=== PATIENT | female | born 1955 | race Caucasian/White ===

== ENCOUNTER → 2017-04-24 | Outpatient (CLI) | payer OTHER ==
[~2017-04-24] MED LIST: DOXYCYCLINE HY100 MG PO; HYDROCODONE PO; LISINOPRIL-HCT1 EAC1 PO; LISINOPRIL10 MG PO; MULTIVITAMINS1 EAC7 PO; NORCO 5-325 TA1 EACH PO; NORCO 7.5-3251 EACH PO; PREDNISONE20 MG PO; VITAMIN D2000 UNI1 PO
--- NOTE | 2017-04-24 09:59 | Diagnostic Imaging Report ---
PROCEDURE: C-SPINE AP AND LAT WITH FLEX AND EXT COMPARISON: Cervical spine series 10/27/2016. INDICATIONS: STATUS POST CERVICAL SPINE SURGERY FINDINGS: C1 through C7 are visualized on the lateral view. Re-demonstration of status post anterior fusion of C3/C4 with disc spacer and transfixing screws which are intact and in adequate alignment. Flexion and extension views demonstrate no change in alignment. The prevertebral soft tissues are not swollen. CONCLUSION: Status post anterior fusion of C3/C4 with some interval bony fusion. Intact hardware with adequate alignment. Dictated by: Sebastian Iqbal M.D. on 04/24/2017 at 10:00 Electronically approved by: Sebastian Iqbal M.D. on 04/24/2017 at 10:00
== END ==
LOC: RAD 09:12
PROVIDERS: ATTEND Neurological Surgery
DX: M50.20 Other cervical disc displacement, unspecified cervical region (principal); Z98.1 Arthrodesis status
CPT/HCPCS: 72050

== ENCOUNTER 2022-04-04 21:04 | Inpatient (IN) | payer MEDICARE, OTHER ==
[~2022-04-04] VITALS: Ht 172.7 cm; Wt 84.2 kg
[2022-04-04] MEDS ORDERED: FAMOTIDINE 20 MG/2 ML VIAL IV STA (21:09)
[2022-04-04] MEDS ORDERED: METHYLPREDNISOLONE SOD SUCC 125 MG/2ML VIAL IV ONE (21:15)
[2022-04-04] MEDS ORDERED: DIPHENHYDRAMINE HCL INJ 50 MG/ML VIAL IV ONE (21:15)
[2022-04-04 21:23] LABS: BASOPHILS # (AUTO) 0.1 (0.0-0.1); BASOPHILS % 0.4 % (0.0-1.0); EOSINOPHILS # (AUTO) 0.1 (0.0-0.4); EOSINOPHILS % 0.7 % (0.0-6.0); HEMATOCRIT 43.7 % (34.2-44.1); HEMOGLOBIN 14.2 g/dL (12.0-16.0); LYMPHOCYTES # (AUTO) 3.3 (1.0-3.2); LYMPHOCYTES % 24.1 % (18.0-39.1); MEAN CORPUSCULAR HEMOGLOBIN 30.5 pg (28-32); MEAN CORPUSCULAR HGB CONC 32.5 g/dL (31-35); MEAN CORPUSCULAR VOLUME 93.8 fL (81-99); MONOCYTES # (AUTO) 0.8 (0.2-0.8); MONOCYTES % 6.1 % (4.4-11.3); NEUTROPHILS # (AUTO) 9.4 (2.1-6.9); NEUTROPHILS % 68.1 % (38.7-80.0); PLATELET COUNT 315 x10e3/uL (140-360); RED BLOOD COUNT 4.66 x10e6/uL (3.6-5.1); RED CELL DISTRIBUTION WIDTH 14.5 % (11.7-14.4)
[2022-04-04] MEDS ORDERED: FAMOTIDINE 20 MG/2 ML VIAL IV ONE (21:29)
[2022-04-04 21:35] LABS: ALBUMIN 3.4 g/dL (3.5-5.0); ALBUMIN/GLOBULIN RATIO 0.7 (0.8-2.0); ANION GAP 16.4 mmol/L (8-16); CALCIUM 10.8 mg/dL (8.4-10.2); CREATININE, SERUM 1.01 mg/dL (0.57-1.11); POTASSIUM 4.4 mmol/L (3.5-5.1)
[2022-04-04 22:15] LABS: CREATINE KINASE MB 3.5 ng/mL (0-5.0)
[2022-04-04] MEDS ORDERED: SODIUM CHLORIDE 0.9% 1000ML 1,000 ML IV ONE (22:45)
[2022-04-04 23:45] VITALS: BP 153/62
[2022-04-04 23:46] VITALS: BP 138/63
[2022-04-05] VITALS (60 sets, daily range): BP systolic 101–162; BP diastolic 49–101
[2022-04-05] MEDS: METHYLPREDNISOLONE SOD SUCC 40 MG/ML VIAL 1ML IV SCH ×2 (00:06→05:33)
[2022-04-05] MEDS: DIPHENHYDRAMINE HCL INJ 50 MG/ML VIAL IV SCH ×2 (00:06→05:33)
[2022-04-05 07:53] LABS: CREATINE KINASE MB 2.9 ng/mL (0-5.0)
[2022-04-05 08:19] LABS: CHOL/HDL RATIO 4.9 (3.0-3.6)
[2022-04-05 08:30] LABS: BASOPHILS % 0.1 % (0.0-1.0); HEMATOCRIT 41.4 % (34.2-44.1); HEMOGLOBIN 13.9 g/dL (12.0-16.0); LYMPHOCYTES # (AUTO) 0.7 (1.0-3.2); LYMPHOCYTES % 6.1 % (18.0-39.1); MEAN CORPUSCULAR HEMOGLOBIN 30.6 pg (28-32); MEAN CORPUSCULAR HGB CONC 33.6 g/dL (31-35); MEAN CORPUSCULAR VOLUME 91.2 fL (81-99); MONOCYTES # (AUTO) 0.2 (0.2-0.8); MONOCYTES % 1.3 % (4.4-11.3); NEUTROPHILS # (AUTO) 10.4 (2.1-6.9); NEUTROPHILS % 91.5 % (38.7-80.0); PLATELET COUNT 302 x10e3/uL (140-360); RED BLOOD COUNT 4.54 x10e6/uL (3.6-5.1); RED CELL DISTRIBUTION WIDTH 14.2 % (11.7-14.4)
[2022-04-05] MEDS ORDERED: DIPHENHYDRAMINE HCL INJ 50 MG/ML VIAL IV PRN (08:30)
[2022-04-05 08:38] LABS: ALBUMIN 3.3 g/dL (3.5-5.0); ALBUMIN/GLOBULIN RATIO 0.8 (0.8-2.0); ANION GAP 19.8 mmol/L (8-16); CREATININE, SERUM 1.37 mg/dL (0.57-1.11); POTASSIUM 4.8 mmol/L (3.5-5.1)
[2022-04-05] MEDS: MULTIVITAMINS/MINERALS TAB PO SCH ×2 (09:00→10:07)
[2022-04-05] MEDS: FAMOTIDINE 20 MG/2 ML VIAL IV SCH ×2 (10:07→17:07)
[2022-04-05] MEDS: NICOTINE 21 MG/EA PATCH TOP SCH (12:09)
[2022-04-05] MEDS: MUPIROCIN 2% OINT 22 GM TUBE TOP SCH (21:00)
[2022-04-06] VITALS (37 sets, daily range): BP systolic 115–178; BP diastolic 55–147
[2022-04-06 05:56] LABS: BASOPHILS % 0.2 % (0.0-1.0); EOSINOPHILS % 0.1 % (0.0-6.0); HEMATOCRIT 38.2 % (34.2-44.1); HEMOGLOBIN 13.2 g/dL (12.0-16.0); LYMPHOCYTES # (AUTO) 1.8 (1.0-3.2); LYMPHOCYTES % 9.7 % (18.0-39.1); MEAN CORPUSCULAR HEMOGLOBIN 31.6 pg (28-32); MEAN CORPUSCULAR HGB CONC 34.6 g/dL (31-35); MEAN CORPUSCULAR VOLUME 91.4 fL (81-99); MONOCYTES # (AUTO) 1.2 (0.2-0.8); MONOCYTES % 6.5 % (4.4-11.3); NEUTROPHILS % 80.1 % (38.7-80.0); PLATELET COUNT 260 x10e3/uL (140-360); RED BLOOD COUNT 4.18 x10e6/uL (3.6-5.1); RED CELL DISTRIBUTION WIDTH 14.3 % (11.7-14.4)
[2022-04-06 06:27] LABS: ALBUMIN 3.1 g/dL (3.5-5.0); ALBUMIN/GLOBULIN RATIO 0.8 (0.8-2.0); ANION GAP 14.3 mmol/L (8-16); CALCIUM 9.1 mg/dL (8.4-10.2); CHOL/HDL RATIO 5.2 (3.0-3.6); CREATININE, SERUM 1.06 mg/dL (0.57-1.11); POTASSIUM 4.3 mmol/L (3.5-5.1)
[2022-04-06 06:55] LABS: CREATINE KINASE MB 3.3 ng/mL (0-5.0)
[2022-04-06] MEDS: HYDROCODONE/APAP 7.5MG-325MG 1 EA TAB PO PRN ×4 (07:43→22:27)
[2022-04-06] MEDS: MUPIROCIN 2% OINT 22 GM TUBE TOP SCH ×2 (09:00→21:00)
[2022-04-06] MEDS: HYDRALAZINE HCL 20 MG/ML VIAL IV PRN (09:32)
[2022-04-06] MEDS: FAMOTIDINE 20 MG/2 ML VIAL IV SCH ×2 (09:41→18:17)
[2022-04-06] MEDS: SODIUM CHLORIDE FLUSH 10 ML SYR INJ PRN ×2 (09:41→18:18)
[2022-04-06] MEDS: MULTIVITAMINS/MINERALS TAB PO SCH (09:41)
[2022-04-06] MEDS: NICOTINE 21 MG/EA PATCH TOP SCH (09:41)
[2022-04-07] VITALS (20 sets, daily range): BP systolic 101–168; BP diastolic 67–109
[2022-04-07] MEDS: HYDROCODONE/APAP 7.5MG-325MG 1 EA TAB PO PRN ×2 (06:04→21:19)
[2022-04-07 06:35] LABS: BASOPHILS % 0.3 % (0.0-1.0); EOSINOPHILS # (AUTO) 0.1 (0.0-0.4); EOSINOPHILS % 0.6 % (0.0-6.0); HEMATOCRIT 42.4 % (34.2-44.1); HEMOGLOBIN 13.9 g/dL (12.0-16.0); LYMPHOCYTES % 27.1 % (18.0-39.1); MEAN CORPUSCULAR HEMOGLOBIN 30.6 pg (28-32); MEAN CORPUSCULAR HGB CONC 32.8 g/dL (31-35); MEAN CORPUSCULAR VOLUME 93.4 fL (81-99); MONOCYTES # (AUTO) 0.8 (0.2-0.8); MONOCYTES % 7.4 % (4.4-11.3); NEUTROPHILS # (AUTO) 7.1 (2.1-6.9); NEUTROPHILS % 64.2 % (38.7-80.0); PLATELET COUNT 279 x10e3/uL (140-360); RED BLOOD COUNT 4.54 x10e6/uL (3.6-5.1); RED CELL DISTRIBUTION WIDTH 14.5 % (11.7-14.4)
[2022-04-07 07:02] LABS: ALBUMIN 3.4 g/dL (3.5-5.0); ALBUMIN/GLOBULIN RATIO 0.8 (0.8-2.0); ANION GAP 15.7 mmol/L (8-16); CALCIUM 9.7 mg/dL (8.4-10.2); CREATININE, SERUM 0.89 mg/dL (0.57-1.11); POTASSIUM 4.7 mmol/L (3.5-5.1)
[2022-04-07] MEDS: MULTIVITAMINS/MINERALS TAB PO SCH (09:00)
[2022-04-07] MEDS: MUPIROCIN 2% OINT 22 GM TUBE TOP SCH ×3 (09:00→20:39)
[2022-04-07] MEDS ORDERED: ONDANSETRON HCL INJ 2MG/ML 2ML 2 MG/ML VIAL IV PRN (09:30)
[2022-04-07] MEDS: NICOTINE 21 MG/EA PATCH TOP SCH (09:40)
[2022-04-07] MEDS: FAMOTIDINE 20 MG/2 ML VIAL IV SCH ×2 (09:42→17:00)
[2022-04-07] MEDS ORDERED: MIDAZOLAM HCL 2 MG/2 ML VIAL ONE (17:11)
[2022-04-07] MEDS ORDERED: GENTAMICIN SULFATE 40 MG/ML 2 ML VIAL ONE (17:12)
[2022-04-07] MEDS ORDERED: Vancomycin IV 1 GM VIAL ONE ×2 (17:12→17:13)
[2022-04-07] MEDS ORDERED: FENTANYL CITRATE/PF 100MCG/2 ML INJ ONE (17:12)
[2022-04-07] MEDS ORDERED: LIDOCAINE HCL 2% LOCAL 20 ML VIAL ONE ×2 (17:13→18:00)
[2022-04-07] MEDS ORDERED: SODIUM CHLORIDE 0.9% 1000ML 3,000 ML ONE (17:13)
[2022-04-07] MEDS ORDERED: SODIUM CHLORIDE 0.9% 250ML 250 ML ONE (17:13)
[2022-04-07] MEDS: DOXYCYCLINE HYCLATE TABLET 100 MG TAB PO SCH (20:42)
[2022-04-08] VITALS (15 sets, daily range): BP systolic 123–169; BP diastolic 68–100
[2022-04-08] MEDS: HYDROCODONE/APAP 7.5MG-325MG 1 EA TAB PO PRN ×2 (05:15→13:15)
[2022-04-08] MEDS: DOXYCYCLINE HYCLATE TABLET 100 MG TAB PO SCH ×2 (08:58→16:08)
[2022-04-08] MEDS: MULTIVITAMINS/MINERALS TAB PO SCH (08:58)
[2022-04-08] MEDS: MUPIROCIN 2% OINT 22 GM TUBE TOP SCH ×2 (08:58→21:00)
[2022-04-08] MEDS: FAMOTIDINE 20 MG/2 ML VIAL IV SCH ×2 (08:58→16:09)
[2022-04-08] MEDS: NICOTINE 21 MG/EA PATCH TOP SCH (08:58)
[2022-04-08] MEDS: HYDRALAZINE HCL 20 MG/ML VIAL IV PRN (14:15)
[2022-04-09 05:48] VITALS: BP 176/86
[2022-04-09 08:00] VITALS: BP 190/98
[2022-04-09 09:09] VITALS: BP 193/93
[2022-04-09] MEDS: DOXYCYCLINE HYCLATE TABLET 100 MG TAB PO SCH (09:36)
[2022-04-09] MEDS: HYDROCODONE/APAP 7.5MG-325MG 1 EA TAB PO PRN (09:36)
[2022-04-09] MEDS: FAMOTIDINE 20 MG/2 ML VIAL IV SCH (09:36)
[2022-04-09] MEDS: NICOTINE 21 MG/EA PATCH TOP SCH (09:36)
[2022-04-09] MEDS: MULTIVITAMINS/MINERALS TAB PO SCH (09:36)
[2022-04-09 12:35] VITALS: BP 173/85
[2022-04-09] MEDS: HYDRALAZINE HCL 20 MG/ML VIAL IV PRN (12:51)
== END 2022-04-09 14:40 | disposition home or self-care (01) | DRG 244 ==
LOC: ER 21:16 → ERHOLD 22:38 → ICU 23:15 → MED/SURG2 04-08 12:41
PROVIDERS: ADMIT Internal Medicine; ATTEND Internal Medicine
PROC: 0JH606Z Insertion of Pacemaker, Dual Chamber into Chest Subcutaneous Tissue and Fascia, Open Approach (ICD-10-PCS; principal; 2022-04-07)
PROC: 02H63JZ Insertion of Pacemaker Lead into Right Atrium, Percutaneous Approach (ICD-10-PCS; 2022-04-07)
PROC: 02HK3JZ Insertion of Pacemaker Lead into Right Ventricle, Percutaneous Approach (ICD-10-PCS; 2022-04-07)
DX: I49.5 Sick sinus syndrome (principal); I35.0 Nonrheumatic aortic (valve) stenosis; I10 Essential (primary) hypertension; E11.9 Type 2 diabetes mellitus without complications; F17.200 Nicotine dependence, unspecified, uncomplicated; T78.3XXA Angioneurotic edema, initial encounter; T46.4X5A Adverse effect of angiotensin-converting-enzyme inhibitors, initial encounter; E83.52 Hypercalcemia; I25.10 Atherosclerotic heart disease of native coronary artery without angina pectoris; I48.0 Paroxysmal atrial fibrillation; Z20.822 Contact with and (suspected) exposure to COVID-19; Z90.49 Acquired absence of other specified parts of digestive tract; Z85.3 Personal history of malignant neoplasm of breast; Z92.3 Personal history of irradiation
CPT/HCPCS: 33208; 36415; 36569; 71045; 80053; 80061; 82550; 82553; 83735; 83970; 84443; 84484; 85025; 86850; 86900; 87040; 93005; 93306; 94799; 96360; 99152; 99153; 99252; 99284; C1769; C1785; C1898; J0360; J1200; J1580; J2001; J2250; J2405; J2920; J2930; J3010; J3370; J7030; J7050

== ENCOUNTER 2024-05-02 23:29 | Inpatient (IN) | payer MEDICARE, OTHER ==
[~2024-05-02] VITALS: Ht 168.9 cm; Wt 95.3 kg
[2024-05-02 23:45] VITALS: RESP 18; TEMP 97.9
[2024-05-03] VITALS (13 sets, daily range): BP systolic 91–124; BP diastolic 64–81; PULSE 70–86; RESP 16–20; TEMP 97.5–98.3; O2SAT 91–100
[2024-05-03 00:11] LABS: BASOPHILS % 0.2 % (0.0-1.0); EOSINOPHILS # (AUTO) 0.1 (0.0-0.4); EOSINOPHILS % 0.7 % (0.0-6.0); HEMATOCRIT 38.5 % (34.2-44.1); HEMOGLOBIN 12.8 g/dL (12.0-16.0); LYMPHOCYTES # (AUTO) 1.6 (1.0-3.2); LYMPHOCYTES % 14.8 % (18.0-39.1); MEAN CORPUSCULAR HEMOGLOBIN 31.6 pg (28-32); MEAN CORPUSCULAR HGB CONC 33.2 g/dL (31-35); MEAN CORPUSCULAR VOLUME 95.1 fL (81-99); MONOCYTES # (AUTO) 0.8 (0.2-0.8); MONOCYTES % 7.5 % (4.4-11.3); NEUTROPHILS # (AUTO) 8.4 (2.1-6.9); NEUTROPHILS % 76.3 % (38.7-80.0); PLATELET COUNT 201 x10e3/uL (140-360); RED BLOOD COUNT 4.05 x10e6/uL (3.6-5.1); RED CELL DISTRIBUTION WIDTH 15.8 % (11.7-14.4); WHITE BLOOD COUNT 10.94 x10e3/uL (4.8-10.8)
[2024-05-03 00:36] LABS: BILIRUBIN,URINE SMALL (NEGATIVE); CLARITY,URINE CLEAR (CLEAR); COLOR,URINE AMBER (YELLOW); GLUCOSE, URINE NEGATIVE (NEGATIVE); KETONES,URINE NEGATIVE (NEGATIVE); LEUKOCYTE ESTERASE ,URINE NEGATIVE (NEGATIVE); NITRITE,URINE NEGATIVE (NEGATIVE); PH,URINE 5.5 (5 - 7); PROTEIN,URINE DIPSTICK 2+ (NEGATIVE); URINE UROBILINOGEN 0.2 mg/dL (0.2 - 1)
[2024-05-03 00:50] LABS: BACTERIA,URINE MANY /HPF; EPITHELIAL CELLS,URINE MODERATE /LPF; RBC,URINE 0-5 /HPF (0-5)
[2024-05-03 00:54] LABS: CORONAVIRUS COVID-19 AG NEGATIVE (NEGATIVE); INFLUENZA A AG NEGATIVE (NEGATIVE); INFLUENZA B AG NEGATIVE (NEGATIVE)
[2024-05-03 00:55] LABS: ALANINE AMINOTRANSFERASE 18 IU/L (0-55); ALBUMIN 3.2 g/dL (3.5-5.0); ALBUMIN/GLOBULIN RATIO 0.9 (0.8-2.0); ALKALINE PHOSPHATASE 89 IU/L (40-150); ANION GAP 18.3 mmol/L (8-16); BILIRUBIN,TOTAL 1.4 mg/dL (0.2-1.2); BLOOD UREA NITROGEN 32 mg/dL (7-26); BUN/CREATININE RATIO 23 (6-25); CALCIUM 9.4 mg/dL (8.4-10.2); CARBON DIOXIDE 26 mmol/L (22-29); CHLORIDE 89 mmol/L (98-107); CREATINE KINASE 83 IU/L (29-168); CREATININE, SERUM 1.37 mg/dL (0.57-1.11); EST GLOMERULAR FILTRATION RATE 42 ML/MIN (>=60); GLUCOSE 142 mg/dL (74-118); POTASSIUM 4.3 mmol/L (3.5-5.1); SODIUM 129 mmol/L (136-145); TOTAL PROTEIN 6.6 g/dL (6.5-8.1)
[2024-05-03 01:00] LABS: TROPONIN I < 0.05 ng/mL (0.0-0.40)
[2024-05-03] MEDS ORDERED: SODIUM CHLORIDE FLUSH 10 ML SYR INJ PRN (01:15)
[2024-05-03] MEDS: FUROSEMIDE INJ 10 MG/ML 4 ML VIAL IV SCH (02:20)
[2024-05-03] MEDS ORDERED: HYDRALAZINE HCL 20 MG/ML VIAL IV PRN (04:00)
[2024-05-03] MEDS ORDERED: CLOPIDOGREL75 MG PO (04:08)
[2024-05-03] MEDS ORDERED: AMITRIPTYLINE H25 MG PO (04:08)
[2024-05-03] MEDS ORDERED: CYCLOBENZAPRINE10 MG PO (04:08)
[2024-05-03] MEDS ORDERED: GLIMEPIRIDE2 MG PO (04:08)
[2024-05-03] MEDS ORDERED: ULTRAM 50MG50 MG PO (04:08)
[2024-05-03] MEDS ORDERED: ACTOS15 MG PO (04:08)
[2024-05-03] MEDS ORDERED: ASPIRIN81 MG PO (04:08)
[2024-05-03] MEDS ORDERED: ATIVAN0.5 MG PO (04:08)
[2024-05-03] MEDS ORDERED: METOPROLOL SUCC25 MG PO (04:08)
[2024-05-03] MEDS: Doxycycline IV 100 MG in SODIUM CHLORIDE 0.9% 100 ML IV SCH (04:40)
[2024-05-03] MEDS: HYDROCODONE/APAP 7.5MG-325MG 1 EA TAB PO PRN (04:41)
[2024-05-03] MEDS: LISINOPRIL 10 MG TAB PO SCH (09:00)
[2024-05-03 09:11] LABS: INR 1.21
[2024-05-03] MEDS: CLOPIDOGREL BISULFATE 75 MG TAB PO SCH (09:18)
[2024-05-03 09:23] LABS: TROPONIN I 0.076 ng/mL (0-0.300)
[2024-05-03] MEDS: METOPROLOL SUCCINATE 25 MG TAB XL PO SCH (10:30)
[2024-05-03 11:13] LABS: BODY FLUID APPEARANCE CLEAR; BODY FLUID COLOR YELLOW; BODY FLUID TYPE PLEURAL; RBC,BODY FLUID 1000 cells/uL; WBC,BODY FLUID 95 cells/uL
[2024-05-03 11:36] LABS: EOSINOPHILS,BODY FLUID 1 %; LYMPHOCYTES,BODY FLUID 35 %; MONO/MACROPHG,BODY FLUID 46 %; NEUTROPHILS,BODY FLUID 18 %; TOTAL CELLS COUNTED (DIFF) 100
[2024-05-03] MEDS: ENOXAPARIN SOD INJ 40 MG/0.4 ML SYR SC SCH (17:30)
[2024-05-04] VITALS (8 sets, daily range): BP systolic 101–127; BP diastolic 8–80; PULSE 66–76; RESP 17–20; TEMP 97.4–98.1; O2SAT 93–100
[2024-05-04 06:47] LABS: BASOPHILS % 0.3 % (0.0-1.0); EOSINOPHILS # (AUTO) 0.1 (0.0-0.4); EOSINOPHILS % 0.6 % (0.0-6.0); HEMATOCRIT 37.6 % (34.2-44.1); HEMOGLOBIN 12.1 g/dL (12.0-16.0); LYMPHOCYTES # (AUTO) 1.5 (1.0-3.2); LYMPHOCYTES % 15.6 % (18.0-39.1); MEAN CORPUSCULAR HEMOGLOBIN 30.9 pg (28-32); MEAN CORPUSCULAR HGB CONC 32.2 g/dL (31-35); MEAN CORPUSCULAR VOLUME 96.2 fL (81-99); MONOCYTES # (AUTO) 1.1 (0.2-0.8); MONOCYTES % 10.8 % (4.4-11.3); NEUTROPHILS % 72.2 % (38.7-80.0); PLATELET COUNT 170 x10e3/uL (140-360); RED BLOOD COUNT 3.91 x10e6/uL (3.6-5.1); RED CELL DISTRIBUTION WIDTH 15.8 % (11.7-14.4)
[2024-05-04 07:26] LABS: ALBUMIN/GLOBULIN RATIO 0.8 (0.8-2.0); ANION GAP 17.9 mmol/L (8-16); BILIRUBIN,TOTAL 1.8 mg/dL (0.2-1.2); CALCIUM 9.2 mg/dL (8.4-10.2); CREATININE, SERUM 1.12 mg/dL (0.57-1.11); POTASSIUM 3.9 mmol/L (3.5-5.1); TOTAL PROTEIN 6.8 g/dL (6.5-8.1)
[2024-05-04] MEDS: ASPIRIN 81 MG ENTERIC COATED PO SCH (08:28)
[2024-05-04 08:39] LABS: TROPONIN I 0.152 ng/mL (0-0.300)
[2024-05-05] VITALS (7 sets, daily range): BP systolic 96–110; BP diastolic 54–76; PULSE 69–94; RESP 18–21; TEMP 97.4–97.6; O2SAT 91–100
[2024-05-05 05:45] LABS: BASOPHILS % 0.2 % (0.0-1.0); EOSINOPHILS # (AUTO) 0.1 (0.0-0.4); HEMATOCRIT 35.1 % (34.2-44.1); HEMOGLOBIN 11.5 g/dL (12.0-16.0); LYMPHOCYTES # (AUTO) 1.5 (1.0-3.2); LYMPHOCYTES % 16.8 % (18.0-39.1); MEAN CORPUSCULAR HEMOGLOBIN 31.2 pg (28-32); MEAN CORPUSCULAR HGB CONC 32.8 g/dL (31-35); MEAN CORPUSCULAR VOLUME 95.1 fL (81-99); MONOCYTES # (AUTO) 1.1 (0.2-0.8); MONOCYTES % 11.8 % (4.4-11.3); NEUTROPHILS # (AUTO) 6.2 (2.1-6.9); NEUTROPHILS % 69.8 % (38.7-80.0); PLATELET COUNT 157 x10e3/uL (140-360); RED BLOOD COUNT 3.69 x10e6/uL (3.6-5.1); RED CELL DISTRIBUTION WIDTH 15.9 % (11.7-14.4); WHITE BLOOD COUNT 8.91 x10e3/uL (4.8-10.8)
[2024-05-05 06:12] LABS: ALBUMIN 2.8 g/dL (3.5-5.0); ALBUMIN/GLOBULIN RATIO 0.8 (0.8-2.0); ANION GAP 16.6 mmol/L (8-16); BILIRUBIN,TOTAL 1.7 mg/dL (0.2-1.2); CALCIUM 8.7 mg/dL (8.4-10.2); CREATININE, SERUM 1.05 mg/dL (0.57-1.11); POTASSIUM 3.6 mmol/L (3.5-5.1); TOTAL PROTEIN 6.4 g/dL (6.5-8.1)
[2024-05-05 07:42] LABS: TROPONIN I 0.11 ng/mL (0-0.300)
[2024-05-06] VITALS (7 sets, daily range): BP systolic 100–126; BP diastolic 62–70; PULSE 67–83; RESP 18–21; TEMP 97.6–98.1; O2SAT 95–99
[2024-05-06 05:26] LABS: TOTAL PROTEIN,BODY FLUID 1.3 g/dL
[2024-05-06 06:13] LABS: ALBUMIN 2.8 g/dL (3.5-5.0); ALBUMIN/GLOBULIN RATIO 0.8 (0.8-2.0); ANION GAP 16.8 mmol/L (8-16); BILIRUBIN,TOTAL 1.5 mg/dL (0.2-1.2); CALCIUM 9.3 mg/dL (8.4-10.2); CREATININE, SERUM 1.18 mg/dL (0.57-1.11); POTASSIUM 3.8 mmol/L (3.5-5.1); TOTAL PROTEIN 6.4 g/dL (6.5-8.1)
[2024-05-06 06:34] LABS: MAGNESIUM 1.6 MG/DL (1.3-2.1)
[2024-05-06 08:11] LABS: BASOPHILS % 0.4 % (0.0-1.0); EOSINOPHILS # (AUTO) 0.1 (0.0-0.4); HEMATOCRIT 34.8 % (34.2-44.1); HEMOGLOBIN 11.4 g/dL (12.0-16.0); LYMPHOCYTES # (AUTO) 1.1 (1.0-3.2); LYMPHOCYTES % 13.1 % (18.0-39.1); MEAN CORPUSCULAR HEMOGLOBIN 31.1 pg (28-32); MEAN CORPUSCULAR HGB CONC 32.8 g/dL (31-35); MEAN CORPUSCULAR VOLUME 94.8 fL (81-99); MONOCYTES # (AUTO) 1.2 (0.2-0.8); MONOCYTES % 14.1 % (4.4-11.3); NEUTROPHILS # (AUTO) 5.9 (2.1-6.9); NEUTROPHILS % 70.8 % (38.7-80.0); PLATELET COUNT 172 x10e3/uL (140-360); RED BLOOD COUNT 3.67 x10e6/uL (3.6-5.1); RED CELL DISTRIBUTION WIDTH 15.8 % (11.7-14.4); WHITE BLOOD COUNT 8.35 x10e3/uL (4.8-10.8)
[2024-05-06] MEDS: DOXYCYCLINE HYCLATE TABLET 100 MG TAB PO SCH (16:19)
[2024-05-07] VITALS (7 sets, daily range): BP systolic 90–140; BP diastolic 56–90; PULSE 63–96; RESP 17–20; TEMP 97.4–98.6; O2SAT 92–100
[2024-05-07] MEDS: METOLAZONE 5 MG TAB PO SCH (08:54)
[2024-05-07] MEDS: FUROSEMIDE INJ 10 MG/ML 4 ML VIAL IV SCH (09:20)
[2024-05-07] MEDS ORDERED: IOPAMIDOL 370 MG/ML 100 ML INFUS..BTL INJ ONE (18:25)
[2024-05-08] MEDS: Morphine 2mg Syringe 2 MG/ML SYR IV PRN (00:18)
[2024-05-08 04:00] VITALS: BP 99/70; PULSE 70; RESP 20; TEMP 97.8; O2SAT 94
[2024-05-08 05:41] LABS: BASOPHILS # (AUTO) 0.1 (0.0-0.1); BASOPHILS % 0.7 % (0.0-1.0); EOSINOPHILS # (AUTO) 0.1 (0.0-0.4); EOSINOPHILS % 1.3 % (0.0-6.0); HEMATOCRIT 36.2 % (34.2-44.1); LYMPHOCYTES # (AUTO) 1.3 (1.0-3.2); MEAN CORPUSCULAR HEMOGLOBIN 31.5 pg (28-32); MEAN CORPUSCULAR HGB CONC 33.1 g/dL (31-35); MONOCYTES # (AUTO) 0.9 (0.2-0.8); MONOCYTES % 12.5 % (4.4-11.3); NEUTROPHILS % 67.1 % (38.7-80.0); PLATELET COUNT 207 x10e3/uL (140-360); RED BLOOD COUNT 3.81 x10e6/uL (3.6-5.1); RED CELL DISTRIBUTION WIDTH 15.5 % (11.7-14.4); WHITE BLOOD COUNT 7.44 x10e3/uL (4.8-10.8)
[2024-05-08 06:12] LABS: ALBUMIN/GLOBULIN RATIO 0.8 (0.8-2.0); ANION GAP 17.3 mmol/L (8-16); BILIRUBIN,TOTAL 1.9 mg/dL (0.2-1.2); CALCIUM 9.5 mg/dL (8.4-10.2); CREATININE, SERUM 1.15 mg/dL (0.57-1.11); MAGNESIUM 1.5 MG/DL (1.3-2.1); TOTAL PROTEIN 6.7 g/dL (6.5-8.1)
[2024-05-08 06:13] LABS: POTASSIUM 3.3 mmol/L (3.5-5.1)
[2024-05-08 08:00] VITALS: BP 106/63; PULSE 69; RESP 18; TEMP 97.9; O2SAT 100
[2024-05-08 09:22] VITALS: BP 106/63; PULSE 69; RESP 18; TEMP 97.9; O2SAT 100
[2024-05-08 11:11] VITALS: BP 106/74; PULSE 69; RESP 20; TEMP 97.7; O2SAT 100
[2024-05-08 16:00] VITALS: BP 102/49; PULSE 73; RESP 19; TEMP 97.7; O2SAT 96
[2024-05-08 20:00] VITALS: BP_SYST 109; BP_SYST 99; BP_DIAS 59; BP_DIAS 66; PULSE 75; RESP 19; TEMP 97.2; O2SAT 99
[2024-05-08] MEDS: LORAZEPAM 0.5 MG TAB PO PRN (22:19)
[2024-05-09 04:00] VITALS: BP 109/67; PULSE 70; RESP 19; TEMP 97.9; O2SAT 99
[2024-05-09] MEDS: MAGNESIUM SULFATE 2GM/50ML 50 ML IV ONE (04:49)
[2024-05-09 06:03] LABS: ANION GAP 19.2 mmol/L (8-16); CALCIUM 9.8 mg/dL (8.4-10.2); CREATININE, SERUM 1.25 mg/dL (0.57-1.11); MAGNESIUM 1.5 MG/DL (1.3-2.1)
[2024-05-09 06:11] LABS: POTASSIUM 3.2 mmol/L (3.5-5.1)
[2024-05-09 07:34] VITALS: BP 107/90; PULSE 70; RESP 18; TEMP 97.6; O2SAT 100
[2024-05-09 08:42] VITALS: BP 107/90; PULSE 70; RESP 18; TEMP 97.6; O2SAT 100
[2024-05-09 11:52] VITALS: BP 107/65; PULSE 77; RESP 19; TEMP 97.4; O2SAT 93
[2024-05-09 15:35] VITALS: BP 103/58; PULSE 69; RESP 20; TEMP 97.5
[2024-05-09 17:46] LABS: LYMPHOCYTES,BODY FLUID 54 %; MONO/MACROPHG,BODY FLUID 18 %; NEUTROPHILS,BODY FLUID 4 %; OTHER CELLS,BODY FLUID 24 %; TOTAL CELLS COUNTED (DIFF) 100
[2024-05-09 17:47] LABS: BODY FLUID APPEARANCE CLEAR; BODY FLUID COLOR YELLOW; BODY FLUID TYPE PLEURAL; RBC,BODY FLUID 3000 cells/uL; WBC,BODY FLUID 124 cells/uL
[2024-05-09 20:00] VITALS: BP 94/55; PULSE 70; RESP 18; TEMP 98; TEMP 98.7; O2SAT 100
[2024-05-09] MEDS: ZOLPIDEM TARTRATE 10 MG TAB PO PRN (21:38)
[2024-05-10] VITALS (7 sets, daily range): BP systolic 89–114; BP diastolic 54–72; PULSE 69–98; RESP 16–20; TEMP 97.2–98.7; O2SAT 95–100
[2024-05-10] MEDS: MAGNESIUM SULFATE 2GM/50ML 50 ML IV ONE (06:33)
[2024-05-10 07:51] LABS: BASOPHILS % 0.3 % (0.0-1.0); EOSINOPHILS # (AUTO) 0.1 (0.0-0.4); HEMATOCRIT 35.4 % (34.2-44.1); HEMOGLOBIN 11.9 g/dL (12.0-16.0); LYMPHOCYTES # (AUTO) 1.2 (1.0-3.2); LYMPHOCYTES % 12.9 % (18.0-39.1); MEAN CORPUSCULAR HGB CONC 33.6 g/dL (31-35); MEAN CORPUSCULAR VOLUME 92.2 fL (81-99); MONOCYTES # (AUTO) 1.1 (0.2-0.8); MONOCYTES % 12.1 % (4.4-11.3); NEUTROPHILS # (AUTO) 6.8 (2.1-6.9); NEUTROPHILS % 73.3 % (38.7-80.0); PLATELET COUNT 210 x10e3/uL (140-360); RED BLOOD COUNT 3.84 x10e6/uL (3.6-5.1); RED CELL DISTRIBUTION WIDTH 15.4 % (11.7-14.4); WHITE BLOOD COUNT 9.21 x10e3/uL (4.8-10.8)
[2024-05-10 08:09] LABS: ALBUMIN 2.8 g/dL (3.5-5.0); ALBUMIN/GLOBULIN RATIO 0.8 (0.8-2.0); BILIRUBIN,TOTAL 2.2 mg/dL (0.2-1.2); CALCIUM 9.6 mg/dL (8.4-10.2); CREATININE, SERUM 1.36 mg/dL (0.57-1.11); TOTAL PROTEIN 6.3 g/dL (6.5-8.1)
[2024-05-10] MEDS: POTASSIUM CHLORIDE 20 MEQ TAB CR PO SCH (08:38)
[2024-05-10] MEDS: SPIRONOLACTONE 25 MG TAB PO SCH (09:01)
[2024-05-10] MEDS: ONDANSETRON HCL INJ 2MG/ML 2ML 2 MG/ML VIAL IV PRN (13:57)
[2024-05-10 14:15] LABS: TOTAL PROTEIN,BODY FLUID 1.6 g/dL
[2024-05-10] MEDS: NALOXONE HCL INJ 0.4 MG/ML AMP IV PRN (16:40)
[2024-05-11] VITALS (8 sets, daily range): BP systolic 91–108; BP diastolic 53–66; PULSE 69–73; RESP 18–21; TEMP 97.6–98.2; O2SAT 97–100
[2024-05-11 06:38] LABS: BASOPHILS % 0.3 % (0.0-1.0); EOSINOPHILS # (AUTO) 0.1 (0.0-0.4); EOSINOPHILS % 0.8 % (0.0-6.0); HEMATOCRIT 34.8 % (34.2-44.1); HEMOGLOBIN 11.9 g/dL (12.0-16.0); LYMPHOCYTES # (AUTO) 1.2 (1.0-3.2); LYMPHOCYTES % 13.5 % (18.0-39.1); MEAN CORPUSCULAR HEMOGLOBIN 31.5 pg (28-32); MEAN CORPUSCULAR HGB CONC 34.2 g/dL (31-35); MEAN CORPUSCULAR VOLUME 92.1 fL (81-99); MONOCYTES # (AUTO) 1.2 (0.2-0.8); MONOCYTES % 12.8 % (4.4-11.3); NEUTROPHILS # (AUTO) 6.5 (2.1-6.9); NEUTROPHILS % 71.9 % (38.7-80.0); PLATELET COUNT 217 x10e3/uL (140-360); RED BLOOD COUNT 3.78 x10e6/uL (3.6-5.1); RED CELL DISTRIBUTION WIDTH 15.3 % (11.7-14.4); WHITE BLOOD COUNT 9.01 x10e3/uL (4.8-10.8)
[2024-05-11 06:49] LABS: ANION GAP 20.5 mmol/L (8-16); CALCIUM 9.9 mg/dL (8.4-10.2); CREATININE, SERUM 1.56 mg/dL (0.57-1.11); MAGNESIUM 1.8 MG/DL (1.3-2.1); POTASSIUM 3.5 mmol/L (3.5-5.1)
[2024-05-11 06:51] LABS: BILIRUBIN,TOTAL 2.3 mg/dL (0.2-1.2); CALCIUM 10.1 mg/dL (8.4-10.2); POTASSIUM 4.1 mmol/L (3.5-5.1)
[2024-05-11 07:11] LABS: ALBUMIN 3.1 g/dL (3.5-5.0); ALBUMIN/GLOBULIN RATIO 0.8 (0.8-2.0); CREATININE, SERUM 1.6 mg/dL (0.57-1.11); MAGNESIUM 1.8 MG/DL (1.3-2.1); TOTAL PROTEIN 6.9 g/dL (6.5-8.1)
[2024-05-11 07:25] LABS: ANION GAP 25.1 mmol/L (8-16)
[2024-05-11] MEDS: HYDROCODONE/APAP 7.5MG-325MG 1 EA TAB PO PRN (13:27)
[2024-05-12] VITALS (8 sets, daily range): BP systolic 99–119; BP diastolic 59–88; PULSE 68–85; RESP 17–19; TEMP 97.5–98.5; O2SAT 95–99
[2024-05-12 06:14] LABS: BASOPHILS % 0.4 % (0.0-1.0); EOSINOPHILS # (AUTO) 0.1 (0.0-0.4); EOSINOPHILS % 1.3 % (0.0-6.0); HEMATOCRIT 36.7 % (34.2-44.1); HEMOGLOBIN 12.3 g/dL (12.0-16.0); LYMPHOCYTES # (AUTO) 1.2 (1.0-3.2); LYMPHOCYTES % 14.4 % (18.0-39.1); MEAN CORPUSCULAR HEMOGLOBIN 31.1 pg (28-32); MEAN CORPUSCULAR HGB CONC 33.5 g/dL (31-35); MEAN CORPUSCULAR VOLUME 92.7 fL (81-99); MONOCYTES # (AUTO) 1.2 (0.2-0.8); MONOCYTES % 14.5 % (4.4-11.3); NEUTROPHILS # (AUTO) 5.8 (2.1-6.9); NEUTROPHILS % 68.7 % (38.7-80.0); PLATELET COUNT 212 x10e3/uL (140-360); RED BLOOD COUNT 3.96 x10e6/uL (3.6-5.1); WHITE BLOOD COUNT 8.49 x10e3/uL (4.8-10.8)
[2024-05-12 07:33] LABS: ALBUMIN 3.1 g/dL (3.5-5.0); ALBUMIN/GLOBULIN RATIO 0.9 (0.8-2.0); ANION GAP 17.8 mmol/L (8-16); CALCIUM 9.7 mg/dL (8.4-10.2); CREATININE, SERUM 1.59 mg/dL (0.57-1.11); MAGNESIUM 1.6 MG/DL (1.3-2.1); POTASSIUM 3.8 mmol/L (3.5-5.1); TOTAL PROTEIN 6.5 g/dL (6.5-8.1)
[2024-05-12] MEDS: DOXYCYCLINE HYCLATE TABLET 100 MG TAB PO SCH (08:03)
[2024-05-12 09:28] LABS: TOTAL PROTEIN, URINE < 6.8 mg/dL (1-14)
[2024-05-12 09:29] LABS: TOTAL PROTEIN 24HR, URINE 54.39992 mg/24hr (50-100); TOTAL VOLUME, URINE 800 ml/24hr (800-2000)
[2024-05-13] MEDS: ZIPRASIDONE 20 MG VIAL IM PRN (01:52)
[2024-05-13 04:00] VITALS: BP 103/73; PULSE 67; RESP 17; TEMP 97.7; O2SAT 96
[2024-05-13 05:33] LABS: BASOPHILS # (AUTO) 0.1 (0.0-0.1); BASOPHILS % 0.5 % (0.0-1.0); EOSINOPHILS # (AUTO) 0.1 (0.0-0.4); HEMATOCRIT 40.6 % (34.2-44.1); HEMOGLOBIN 13.6 g/dL (12.0-16.0); LYMPHOCYTES # (AUTO) 1.5 (1.0-3.2); MEAN CORPUSCULAR HEMOGLOBIN 31.6 pg (28-32); MEAN CORPUSCULAR HGB CONC 33.5 g/dL (31-35); MEAN CORPUSCULAR VOLUME 94.2 fL (81-99); MONOCYTES # (AUTO) 1.2 (0.2-0.8); MONOCYTES % 11.3 % (4.4-11.3); NEUTROPHILS # (AUTO) 7.3 (2.1-6.9); NEUTROPHILS % 71.4 % (38.7-80.0); PLATELET COUNT 244 x10e3/uL (140-360); RED BLOOD COUNT 4.31 x10e6/uL (3.6-5.1); RED CELL DISTRIBUTION WIDTH 15.1 % (11.7-14.4); WHITE BLOOD COUNT 10.26 x10e3/uL (4.8-10.8)
[2024-05-13 05:52] LABS: ALBUMIN 3.4 g/dL (3.5-5.0); ALBUMIN/GLOBULIN RATIO 0.8 (0.8-2.0); ANION GAP 19.3 mmol/L (8-16); BILIRUBIN,TOTAL 2.1 mg/dL (0.2-1.2); CALCIUM 10.3 mg/dL (8.4-10.2); CREATININE, SERUM 1.55 mg/dL (0.57-1.11); POTASSIUM 4.3 mmol/L (3.5-5.1); TOTAL PROTEIN 7.6 g/dL (6.5-8.1)
[2024-05-13 08:53] VITALS: BP 107/57; PULSE 68; RESP 16; TEMP 98.2; O2SAT 100
[2024-05-13 09:01] VITALS: BP 107/57; PULSE 68; RESP 16; TEMP 98.2; O2SAT 100
[2024-05-13] MEDS: POTASSIUM CHLORIDE 10MEQ EA PO SCH (10:53)
[2024-05-13 12:41] VITALS: BP 114/64; PULSE 70; RESP 17; TEMP 97.4; O2SAT 100
[2024-05-13] MEDS: TRAMADOL HCL 50 MG TAB PO PRN (13:02)
[2024-05-13 14:06] LABS: ANION GAP 18.5 mmol/L (8-16); CALCIUM 10.5 mg/dL (8.4-10.2); CREATININE, SERUM 1.59 mg/dL (0.57-1.11); POTASSIUM 4.5 mmol/L (3.5-5.1)
[2024-05-13 16:00] VITALS: BP 99/56; PULSE 68; RESP 17; TEMP 97.5; O2SAT 96
== END 2024-05-13 19:10 | disposition home or self-care (01) | DRG 291 ==
LOC: ER 23:34 → ERHOLD 05-03 01:14 → MED/SURG2 05-03 02:37
PROVIDERS: ADMIT Internal Medicine; ATTEND Internal Medicine
PROC: 02HV33Z Insertion of Infusion Device into Superior Vena Cava, Percutaneous Approach (ICD-10-PCS; 2024-05-04)
PROC: 0W993ZZ Drainage of Right Pleural Cavity, Percutaneous Approach (ICD-10-PCS; principal; 2024-05-09)
DX: I13.0 Hypertensive heart and chronic kidney disease with heart failure and stage 1 through stage 4 chronic kidney disease, or unspecified chronic kidney disease (principal); E43 Unspecified severe protein-calorie malnutrition; I50.33 Acute on chronic diastolic (congestive) heart failure; J90 Pleural effusion, not elsewhere classified; E87.1 Hypo-osmolality and hyponatremia; L03.115 Cellulitis of right lower limb; N17.9 Acute kidney failure, unspecified; N39.0 Urinary tract infection, site not specified; L03.116 Cellulitis of left lower limb; I50.811 Acute right heart failure; I27.29 Other secondary pulmonary hypertension; E11.22 Type 2 diabetes mellitus with diabetic chronic kidney disease; N18.32 Chronic kidney disease, stage 3b; I08.1 Rheumatic disorders of both mitral and tricuspid valves; I49.5 Sick sinus syndrome; R53.81 Other malaise; E87.6 Hypokalemia; E83.42 Hypomagnesemia; T40.2X5A Adverse effect of other opioids, initial encounter; R41.0 Disorientation, unspecified; Z95.0 Presence of cardiac pacemaker; Z95.820 Peripheral vascular angioplasty status with implants and grafts; Z82.49 Family history of ischemic heart disease and other diseases of the circulatory system; F17.210 Nicotine dependence, cigarettes, uncomplicated; K21.9 Gastro-esophageal reflux disease without esophagitis; E66.9 Obesity, unspecified; Z68.33 Body mass index [BMI] 33.0-33.9, adult; Z11.52 Encounter for screening for COVID-19; Z79.84 Long term (current) use of oral hypoglycemic drugs; Z79.82 Long term (current) use of aspirin; Z79.02 Long term (current) use of antithrombotics/antiplatelets; Z95.3 Presence of xenogenic heart valve; Z85.3 Personal history of malignant neoplasm of breast; Z90.49 Acquired absence of other specified parts of digestive tract; Z90.710 Acquired absence of both cervix and uterus; Z92.3 Personal history of irradiation; Z88.1 Allergy status to other antibiotic agents; Z88.2 Allergy status to sulfonamides; Z88.8 Allergy status to other drugs, medicaments and biological substances
CPT/HCPCS: 32555; 36415; 36568; 71045; 71046; 71260; 74177; 74470; 80048; 80053; 81001; 81050; 82044; 82140; 82550; 82948; 83615; 83690; 83735; 83880; 84156; 84157; 84478; 84484; 85025; 85610; 87040; 87070; 87205; 88112; 88305; 89051; 93005; 93306; 93925; 93970; 94799; 99252; 99284; C1729; J1650; J1940; J2270; J2310; J2405; J2470; J3475; J3486; J7050; Q9967

== ENCOUNTER 2024-05-16 20:39 | Inpatient (IN) | payer MEDICARE ==
[~2024-05-16] VITALS: Ht 167.6 cm; Wt 77.1 kg
[~2024-05-16 20:39] MED LIST changes: +ACTOS15 MG PO; +AMITRIPTYLINE H25 MG PO; +ASPIRIN81 MG PO; +ATIVAN0.5 MG PO; +CLOPIDOGREL75 MG PO; +CYCLOBENZAPRINE10 MG PO; +GLIMEPIRIDE2 MG PO; +METOPROLOL SUCC25 MG PO; +ULTRAM 50MG50 MG PO
[2024-05-16 21:02] VITALS: TEMP 97.7
[2024-05-16 21:31] LABS: BASOPHILS % 0.1 % (0.0-1.0); EOSINOPHILS % 0.2 % (0.0-6.0); HEMATOCRIT 38.9 % (34.2-44.1); HEMOGLOBIN 13.2 g/dL (12.0-16.0); LYMPHOCYTES # (AUTO) 0.8 (1.0-3.2); LYMPHOCYTES % 5.8 % (18.0-39.1); MEAN CORPUSCULAR HEMOGLOBIN 30.9 pg (28-32); MEAN CORPUSCULAR HGB CONC 33.9 g/dL (31-35); MEAN CORPUSCULAR VOLUME 91.1 fL (81-99); MONOCYTES # (AUTO) 1.1 (0.2-0.8); MONOCYTES % 7.7 % (4.4-11.3); NEUTROPHILS # (AUTO) 12.2 (2.1-6.9); NEUTROPHILS % 85.6 % (38.7-80.0); PLATELET COUNT 261 x10e3/uL (140-360); RED BLOOD COUNT 4.27 x10e6/uL (3.6-5.1); RED CELL DISTRIBUTION WIDTH 15.1 % (11.7-14.4); WHITE BLOOD COUNT 14.22 x10e3/uL (4.8-10.8)
[2024-05-16 21:49] LABS: ALBUMIN 3.5 g/dL (3.5-5.0); ALBUMIN/GLOBULIN RATIO 0.8 (0.8-2.0); BILIRUBIN,TOTAL 1.6 mg/dL (0.2-1.2); CALCIUM 9.8 mg/dL (8.4-10.2); CREATININE, SERUM 1.47 mg/dL (0.57-1.11); TOTAL PROTEIN 7.9 g/dL (6.5-8.1); TROPONIN I 0.135 ng/mL (0-0.300)
[2024-05-16 22:20] VITALS: PULSE 73; RESP 16; O2SAT 96
[2024-05-16] MEDS: SODIUM CHLORIDE 0.9% 1000ML 1,000 ML IV STA (22:23)
[2024-05-16] MEDS: ACETAMINOPHEN 325 MG TAB PO STA (22:23)
[2024-05-16] MEDS: Clindamycin INJ 300 MG/50 ML 50 ML IV SCH (22:24)
[2024-05-16 23:21] LABS: BILIRUBIN,URINE NEGATIVE (NEGATIVE); CLARITY,URINE CLEAR (CLEAR); COLOR,URINE YELLOW (YELLOW); GLUCOSE, URINE NEGATIVE (NEGATIVE); KETONES,URINE NEGATIVE (NEGATIVE); LEUKOCYTE ESTERASE ,URINE NEGATIVE (NEGATIVE); NITRITE,URINE NEGATIVE (NEGATIVE); PH,URINE 6 (5 - 7); PROTEIN,URINE DIPSTICK TRACE (NEGATIVE); URINE UROBILINOGEN 0.2 mg/dL (0.2 - 1)
[2024-05-17] VITALS (9 sets, daily range): BP systolic 85–118; BP diastolic 64–78; PULSE 69–78; RESP 16–21; TEMP 97.5–98.1; O2SAT 95–98
[2024-05-17 00:04] LABS: BACTERIA,URINE MODERATE /HPF; EPITHELIAL CELLS,URINE MODERATE /LPF; RBC,URINE 0-5 /HPF (0-5); RENAL EPITHELIAL CELLS,URINE FEW; WBC,URINE (MAN) 0-5 /HPF (0-5)
[2024-05-17] MEDS: FUROSEMIDE INJ 10 MG/ML 4 ML VIAL IV SCH (01:51)
[2024-05-17] MEDS: LORAZEPAM INJ 2 MG/ML VIAL IV STA (01:57)
[2024-05-17 02:04] LABS: TROPONIN I 0.129 ng/mL (0-0.300)
[2024-05-17] MEDS ORDERED: LORAZEPAM 1 MG TAB PO PRN (04:00)
[2024-05-17 06:21] LABS: BASOPHILS % 0.2 % (0.0-1.0); EOSINOPHILS % 0.3 % (0.0-6.0); HEMATOCRIT 35.7 % (34.2-44.1); HEMOGLOBIN 12.3 g/dL (12.0-16.0); LYMPHOCYTES # (AUTO) 1.4 (1.0-3.2); LYMPHOCYTES % 12.4 % (18.0-39.1); MEAN CORPUSCULAR HEMOGLOBIN 31.3 pg (28-32); MEAN CORPUSCULAR HGB CONC 34.5 g/dL (31-35); MEAN CORPUSCULAR VOLUME 90.8 fL (81-99); MONOCYTES # (AUTO) 1.2 (0.2-0.8); NEUTROPHILS # (AUTO) 8.8 (2.1-6.9); NEUTROPHILS % 76.7 % (38.7-80.0); PLATELET COUNT 219 x10e3/uL (140-360); RED BLOOD COUNT 3.93 x10e6/uL (3.6-5.1); RED CELL DISTRIBUTION WIDTH 15.1 % (11.7-14.4); WHITE BLOOD COUNT 11.47 x10e3/uL (4.8-10.8)
[2024-05-17] MEDS: Morphine 2mg Syringe 2 MG/ML SYR IV PRN (06:28)
[2024-05-17 06:39] LABS: INR 1.05; PROTHROMBIN TIME 14.3 seconds (11.9-14.5)
[2024-05-17 06:43] LABS: ALBUMIN/GLOBULIN RATIO 0.7 (0.8-2.0); ANION GAP 18.4 mmol/L (8-16); BILIRUBIN,TOTAL 1.5 mg/dL (0.2-1.2); CALCIUM 9.6 mg/dL (8.4-10.2); CREATININE, SERUM 1.41 mg/dL (0.57-1.11); POTASSIUM 4.4 mmol/L (3.5-5.1); TOTAL PROTEIN 7.3 g/dL (6.5-8.1)
[2024-05-17] MEDS: ASPIRIN 81 MG CHEW TAB PO SCH (09:52)
[2024-05-17] MEDS: CLOPIDOGREL BISULFATE 75 MG TAB PO SCH (09:52)
[2024-05-17] MEDS: METOPROLOL SUCCINATE 25 MG TAB XL PO SCH (09:53)
[2024-05-17] MEDS: GLUCAGON FOR INJ 1 MG VIAL IV STA (09:58)
[2024-05-17] MEDS: DEXTROSE 5%/0.9% SOD CHL 1,000 ML IV SCH (10:19)
[2024-05-17 10:52] LABS: TROPONIN I 0.141 ng/mL (0-0.300)
[2024-05-17] MEDS: SODIUM CHLORIDE 1 GM TAB PO SCH (15:57)
[2024-05-17] MEDS: CEFTRIAXONE 2 GM in SODIUM CHLORIDE 0.9% 100 ML IV SCH (17:30)
[2024-05-17] MEDS: BUMETANIDE INJ 0.25MG/ML 4ML VIAL IV SCH (17:39)
[2024-05-17] MEDS: LORAZEPAM 1 MG TAB PO PRN (21:25)
[2024-05-17] MEDS: DIPHENHYDRAMINE HCL INJ 50 MG/ML VIAL IV PRN (23:46)
[2024-05-18] VITALS (8 sets, daily range): BP systolic 104–137; BP diastolic 48–84; PULSE 69–90; RESP 16–20; TEMP 97.4–98.4; O2SAT 96–100
[2024-05-18 00:56] LABS: TROPONIN I 0.119 ng/mL (0-0.300)
[2024-05-18 06:42] LABS: ALBUMIN 2.8 g/dL (3.5-5.0); ALBUMIN/GLOBULIN RATIO 0.7 (0.8-2.0); ANION GAP 16.3 mmol/L (8-16); BILIRUBIN,TOTAL 1.5 mg/dL (0.2-1.2); CALCIUM 9.2 mg/dL (8.4-10.2); CREATININE, SERUM 1.31 mg/dL (0.57-1.11); POTASSIUM 4.3 mmol/L (3.5-5.1); TOTAL PROTEIN 6.6 g/dL (6.5-8.1)
[2024-05-18] MEDS: SODIUM CHLORIDE 0.9% 1000ML 1,000 ML IV SCH (11:55)
[2024-05-18] MEDS: BUMETANIDE INJ 0.25MG/ML 4ML VIAL IV SCH (16:36)
[2024-05-18] MEDS: TRAMADOL HCL 50 MG TAB PO PRN (18:23)
[2024-05-19] VITALS (8 sets, daily range): BP systolic 109–142; BP diastolic 69–90; PULSE 66–77; RESP 16–20; TEMP 97.4–97.9; O2SAT 95–100
[2024-05-19 07:56] LABS: ANION GAP 18.7 mmol/L (8-16); CALCIUM 9.3 mg/dL (8.4-10.2); CREATININE, SERUM 1.14 mg/dL (0.57-1.11); POTASSIUM 3.7 mmol/L (3.5-5.1)
[2024-05-19 08:07] LABS: TOTAL PROTEIN 24HR, URINE 338.3 mg/24hr (50-100); TOTAL PROTEIN, URINE 34.7 mg/dL (1-14)
[2024-05-19 08:46] LABS: CREATININE,URINE RANDOM 77.95 mg/dL (47-110)
[2024-05-19 14:30] LABS: ANION GAP 16.9 mmol/L (8-16); CREATININE, SERUM 1.09 mg/dL (0.57-1.11); POTASSIUM 3.9 mmol/L (3.5-5.1)
[2024-05-20] VITALS (7 sets, daily range): BP systolic 116–140; BP diastolic 29–85; PULSE 69–71; RESP 16–19; TEMP 97.6–98.9; O2SAT 94–98
[2024-05-20] MEDS: ONDANSETRON HCL INJ 2MG/ML 2ML 2 MG/ML VIAL IV PRN (02:37)
[2024-05-20 06:41] LABS: ABG HCO3 34 mmol/L (22-26); ABG PCO2 50 mmHg (35-45); ABG PH 7.44 (7.35-7.45); ABG PO2 19 mmHg (80-105); ABG TCO2 36
[2024-05-20 07:00] LABS: BASOPHILS % 0.3 % (0.0-1.0); EOSINOPHILS % 0.2 % (0.0-6.0); HEMATOCRIT 35.4 % (34.2-44.1); HEMOGLOBIN 11.9 g/dL (12.0-16.0); LYMPHOCYTES # (AUTO) 1.6 (1.0-3.2); MEAN CORPUSCULAR HEMOGLOBIN 31.2 pg (28-32); MEAN CORPUSCULAR HGB CONC 33.6 g/dL (31-35); MEAN CORPUSCULAR VOLUME 92.7 fL (81-99); MONOCYTES # (AUTO) 1.2 (0.2-0.8); MONOCYTES % 11.5 % (4.4-11.3); NEUTROPHILS # (AUTO) 7.5 (2.1-6.9); PLATELET COUNT 254 x10e3/uL (140-360); RED BLOOD COUNT 3.82 x10e6/uL (3.6-5.1); RED CELL DISTRIBUTION WIDTH 15.4 % (11.7-14.4); WHITE BLOOD COUNT 10.42 x10e3/uL (4.8-10.8)
[2024-05-20 07:27] LABS: ALBUMIN 3.1 g/dL (3.5-5.0); ALBUMIN/GLOBULIN RATIO 0.7 (0.8-2.0); ANION GAP 18.1 mmol/L (8-16); BILIRUBIN,TOTAL 1.4 mg/dL (0.2-1.2); CALCIUM 9.6 mg/dL (8.4-10.2); CREATININE, SERUM 1.18 mg/dL (0.57-1.11); POTASSIUM 4.1 mmol/L (3.5-5.1); TOTAL PROTEIN 7.3 g/dL (6.5-8.1)
[2024-05-20 16:08] LABS: ANION GAP 16.6 mmol/L (8-16); CALCIUM 9.1 mg/dL (8.4-10.2); CREATININE, SERUM 1.09 mg/dL (0.57-1.11); POTASSIUM 3.6 mmol/L (3.5-5.1)
[2024-05-21] VITALS (7 sets, daily range): BP systolic 115–131; BP diastolic 55–84; PULSE 66–76; RESP 18–20; TEMP 97.5–98.8; O2SAT 94–100
[2024-05-21 07:00] LABS: BASOPHILS # (AUTO) 0.1 (0.0-0.1); BASOPHILS % 0.5 % (0.0-1.0); EOSINOPHILS # (AUTO) 0.1 (0.0-0.4); HEMATOCRIT 36.4 % (34.2-44.1); HEMOGLOBIN 11.8 g/dL (12.0-16.0); LYMPHOCYTES # (AUTO) 1.7 (1.0-3.2); LYMPHOCYTES % 18.8 % (18.0-39.1); MEAN CORPUSCULAR HEMOGLOBIN 31.1 pg (28-32); MEAN CORPUSCULAR HGB CONC 32.4 g/dL (31-35); MEAN CORPUSCULAR VOLUME 95.8 fL (81-99); MONOCYTES % 10.8 % (4.4-11.3); NEUTROPHILS # (AUTO) 6.3 (2.1-6.9); NEUTROPHILS % 67.9 % (38.7-80.0); PLATELET COUNT 234 x10e3/uL (140-360); RED CELL DISTRIBUTION WIDTH 15.7 % (11.7-14.4); WHITE BLOOD COUNT 9.27 x10e3/uL (4.8-10.8)
[2024-05-21 07:26] LABS: ALBUMIN 2.8 g/dL (3.5-5.0); ALBUMIN/GLOBULIN RATIO 0.7 (0.8-2.0); ANION GAP 18.5 mmol/L (8-16); BILIRUBIN,TOTAL 1.3 mg/dL (0.2-1.2); CALCIUM 9.4 mg/dL (8.4-10.2); CREATININE, SERUM 1.05 mg/dL (0.57-1.11); POTASSIUM 3.5 mmol/L (3.5-5.1); TOTAL PROTEIN 7.1 g/dL (6.5-8.1)
[2024-05-21] MEDS: POTASSIUM CHLORIDE 20 MEQ TAB CR PO ONE (11:06)
[2024-05-21] MEDS: BUMETANIDE 1 MG TAB PO SCH (17:21)
[2024-05-21] MEDS: MAGNESIUM/ALUMINUM/SIMETHICONE 30 ML UDC PO PRN (19:44)
[2024-05-22] VITALS (9 sets, daily range): BP systolic 114–129; BP diastolic 74–86; PULSE 70–73; RESP 18–20; TEMP 97–98; O2SAT 95–100
[2024-05-22 08:54] LABS: BASOPHILS % 0.4 % (0.0-1.0); EOSINOPHILS % 0.2 % (0.0-6.0); HEMATOCRIT 37.9 % (34.2-44.1); HEMOGLOBIN 12.2 g/dL (12.0-16.0); LYMPHOCYTES # (AUTO) 1.2 (1.0-3.2); LYMPHOCYTES % 13.8 % (18.0-39.1); MEAN CORPUSCULAR HEMOGLOBIN 31.6 pg (28-32); MEAN CORPUSCULAR HGB CONC 32.2 g/dL (31-35); MEAN CORPUSCULAR VOLUME 98.2 fL (81-99); MONOCYTES # (AUTO) 0.8 (0.2-0.8); MONOCYTES % 9.8 % (4.4-11.3); NEUTROPHILS # (AUTO) 6.4 (2.1-6.9); NEUTROPHILS % 74.5 % (38.7-80.0); PLATELET COUNT 193 x10e3/uL (140-360); RED BLOOD COUNT 3.86 x10e6/uL (3.6-5.1); RED CELL DISTRIBUTION WIDTH 15.9 % (11.7-14.4); WHITE BLOOD COUNT 8.56 x10e3/uL (4.8-10.8)
[2024-05-22 09:34] LABS: ALBUMIN 2.9 g/dL (3.5-5.0); ALBUMIN/GLOBULIN RATIO 0.7 (0.8-2.0); ANION GAP 22.7 mmol/L (8-16); BILIRUBIN,TOTAL 1.6 mg/dL (0.2-1.2); CALCIUM 9.4 mg/dL (8.4-10.2); CREATININE, SERUM 1.27 mg/dL (0.57-1.11); TOTAL PROTEIN 6.8 g/dL (6.5-8.1)
[2024-05-22 09:37] LABS: POTASSIUM 4.7 mmol/L (3.5-5.1)
[2024-05-23] VITALS: BP 132/90; PULSE 73; RESP 18; TEMP 97.9; O2SAT 100
[2024-05-23 05:12] LABS: BASOPHILS % 0.4 % (0.0-1.0); EOSINOPHILS # (AUTO) 0.1 (0.0-0.4); EOSINOPHILS % 0.5 % (0.0-6.0); HEMATOCRIT 36.2 % (34.2-44.1); HEMOGLOBIN 11.8 g/dL (12.0-16.0); LYMPHOCYTES # (AUTO) 1.7 (1.0-3.2); LYMPHOCYTES % 16.5 % (18.0-39.1); MEAN CORPUSCULAR HEMOGLOBIN 31.1 pg (28-32); MEAN CORPUSCULAR HGB CONC 32.6 g/dL (31-35); MEAN CORPUSCULAR VOLUME 95.5 fL (81-99); MONOCYTES # (AUTO) 1.1 (0.2-0.8); MONOCYTES % 10.6 % (4.4-11.3); NEUTROPHILS # (AUTO) 7.3 (2.1-6.9); NEUTROPHILS % 70.4 % (38.7-80.0); PLATELET COUNT 247 x10e3/uL (140-360); RED BLOOD COUNT 3.79 x10e6/uL (3.6-5.1); RED CELL DISTRIBUTION WIDTH 15.9 % (11.7-14.4); WHITE BLOOD COUNT 10.31 x10e3/uL (4.8-10.8)
[2024-05-23 05:45] LABS: ALBUMIN 3.1 g/dL (3.5-5.0); ALBUMIN/GLOBULIN RATIO 0.7 (0.8-2.0); ANION GAP 21.9 mmol/L (8-16); BILIRUBIN,TOTAL 1.6 mg/dL (0.2-1.2); CALCIUM 9.4 mg/dL (8.4-10.2); CREATININE, SERUM 1.29 mg/dL (0.57-1.11); POTASSIUM 3.9 mmol/L (3.5-5.1); TOTAL PROTEIN 7.3 g/dL (6.5-8.1)
[2024-05-23 07:19] LABS: SPE ALPHA 1 GLOBULIN 0.5; SPE ALPHA 2 GLOBULIN 1.3
[2024-05-23 07:20] LABS: SPE GAMMA GLOBULIN 1.1
[2024-05-23 07:21] LABS: GLOBULIN TOTAL 3.9; SPE TOTAL PROTEIN 6.5
[2024-05-23 07:22] LABS: A/G RATIO 0.7
[2024-05-29 06:43] LABS: KAPPA LIGHT CHAINS 32.2; KAPPA/LAMBDA RATIO 1.28; LAMBDA LIGHT CHAINS 25.1
== END 2024-05-23 08:32 | disposition home or self-care (01) | DRG 637 ==
LOC: ER 20:51 → ERHOLD 23:34 → MED/SURG3 05-17 10:53
PROVIDERS: ADMIT Internal Medicine; ATTEND Internal Medicine
PROC: 4A133R1 Monitoring of Arterial Saturation, Peripheral, Percutaneous Approach (ICD-10-PCS; principal; 2024-05-16)
DX: E11.649 Type 2 diabetes mellitus with hypoglycemia without coma (principal); E43 Unspecified severe protein-calorie malnutrition; I13.0 Hypertensive heart and chronic kidney disease with heart failure and stage 1 through stage 4 chronic kidney disease, or unspecified chronic kidney disease; I50.33 Acute on chronic diastolic (congestive) heart failure; J90 Pleural effusion, not elsewhere classified; L03.116 Cellulitis of left lower limb; L03.115 Cellulitis of right lower limb; E87.1 Hypo-osmolality and hyponatremia; I27.29 Other secondary pulmonary hypertension; K74.60 Unspecified cirrhosis of liver; I50.812 Chronic right heart failure; N17.9 Acute kidney failure, unspecified; E11.22 Type 2 diabetes mellitus with diabetic chronic kidney disease; N18.31 Chronic kidney disease, stage 3a; E78.5 Hyperlipidemia, unspecified; I34.0 Nonrheumatic mitral (valve) insufficiency; R41.82 Altered mental status, unspecified; M54.9 Dorsalgia, unspecified; R09.02 Hypoxemia; R53.81 Other malaise; F32.A Depression, unspecified; F41.9 Anxiety disorder, unspecified; T38.3X5A Adverse effect of insulin and oral hypoglycemic [antidiabetic] drugs, initial encounter; E66.9 Obesity, unspecified; Z68.27 Body mass index [BMI] 27.0-27.9, adult; Z79.02 Long term (current) use of antithrombotics/antiplatelets; Z79.82 Long term (current) use of aspirin; Z95.5 Presence of coronary angioplasty implant and graft; Z95.820 Peripheral vascular angioplasty status with implants and grafts; Z95.2 Presence of prosthetic heart valve; Z95.0 Presence of cardiac pacemaker; Z90.49 Acquired absence of other specified parts of digestive tract; Z90.710 Acquired absence of both cervix and uterus; Z88.1 Allergy status to other antibiotic agents; Z88.2 Allergy status to sulfonamides; Z85.3 Personal history of malignant neoplasm of breast; Z92.3 Personal history of irradiation
CPT/HCPCS: 32555; 36415; 70450; 71045; 76705; 76770; 80048; 80053; 81001; 81050; 82533; 82550; 82570; 82805; 82948; 83605; 83690; 83735; 83880; 84156; 84165; 84484; 85025; 85610; 85730; 87040; 87086; 93005; 94799; 99285; J0696; J1200; J1610; J1938; J2060; J2270; J2405; J7030; J7042; J7050